=== PATIENT | female | born 1955 ===

== ENCOUNTER 2024-03-19 14:22 | Outpatient (REF) | payer MEDICARE, SELFPAY | END 2024-03-19 14:23 | disposition home or self-care (01) | LOC: LBN 14:22 | PROVIDERS: Visit Provider Internal Medicine Infectious Disease | DX: A31.0 Pulmonary mycobacterial infection; A31.9 Mycobacterial infection, unspecified | CPT/HCPCS: 87116; 87206 ==

== ENCOUNTER 2024-05-25 15:46 | Outpatient (REF) | payer MEDICARE, SELFPAY ==
[2024-05-25 15:54] LABS: Abs Immature Grans 0.01 10^3/uL (0.0-0.06); Absolute Basophil Count 0.08 10^3/uL (0.0-0.2); Absolute Eosinophil Count 0.43 10^3/uL (0.0-0.7); Absolute Lymphocyte Count 1.41 10^3/uL (1.2-3.4); Absolute Monocyte Count 0.41 10^3/uL (0.1-0.8); Absolute Neutrophil Count 2.46 10^3/uL (1.2-6.7); Basophils % 1.7 %; HCT 38.3 % (36.0-46.0); HGB 12.5 g/dL (11.2-15.7); Immature Grans % 0.2 %; Lymphocytes % 29.4 %; MCH 30.9 pg (27.0-33.0); MCHC 32.6 % (32.0-36.0); MCV 95 fL (80-95); MPV 12.2 fL (8.0-11.0); Monocytes % 8.5 %; Neutrophils % 51.2 %; Platelet Count 198 10^3/uL (130-400); RBC 4.05 10^6/uL (3.93-5.22); RDW 12.5 % (11.7-14.6); RDW-SD 43.3 fL
[2024-05-25 16:51] LABS: ALT 31 U/L (14-59); AST 25 U/L (15-37); Alkaline Phosphatase 91 U/L (46-116); Anion Gap 8.4 mmol/L (3-11); BUN 21 mg/dL (7-18); Bilirubin, Total 0.5 mg/dL (0.2-1.0); CO2 27.6 mmol/L (21.0-32.0); Calcium 9.3 mg/dL (8.5-10.1); Calculated LDL 61 mg/dL (<100); Chloride 106 mmol/L (98-107); Cholesterol 195 mg/dL (<200); Estimated GFR 60.98 (mL/min/1.73m2); Glucose 86 mg/dL (74-106); HDL Cholesterol 125 mg/dL (>or=50); Potassium 4.7 mmol/L (3.5-5.1); Sodium 142 mmol/L (136-145); Triglyceride 46 mg/dL (<150)
== END 2024-05-25 15:47 | disposition home or self-care (01) ==
LOC: NCHCN 15:46
PROVIDERS: PCP Family Medicine; Visit Provider Family Medicine
DX: E78.5 Hyperlipidemia, unspecified (principal); M31.31 Wegener's granulomatosis with renal involvement
CPT/HCPCS: 80053; 80061; 85025

== ENCOUNTER → 2024-08-12 13:00 | Outpatient (BNVA) | payer MEDICARE, SELFPAY | PROVIDERS: PCP Family Medicine; Referring Provider Family Medicine; Visit Provider Physician Assistant Surgical | DX: A31.0 Pulmonary mycobacterial infection (principal); M31.30 Wegener's granulomatosis without renal involvement; J45.909 Unspecified asthma, uncomplicated; J47.9 Bronchiectasis, uncomplicated; J44.9 Chronic obstructive pulmonary disease, unspecified | CPT/HCPCS: 99205 ==

== ENCOUNTER 2024-10-02 00:38 | Outpatient (CLI) | payer MEDICARE, SELFPAY ==
--- NOTE | 2024-10-02 | DI.MAMMO_ITS ---
Exam(s) MAMMO SCREENING EXAM: MAMMO SCREENING CLINICAL HISTORY: Screening, Z12.31. TECHNIQUE: Bilateral full field digital CC and MLO mammographic images were obtained with 3D tomosynthesis and utilizing computer aided detection (CAD). COMPARISON: Prior outside mammogram 2019 was reviewed. There are no interval mammograms. FINDINGS: There are no new significant left breast findings In the right breast there are 2 areas of asymmetric density-possible nodule seen on the CC view, both located approximately 5-6 cm in from the nipple on the CC view. One measures approximately 7 x 6 mm and the other asymmetric density- possible nodule measures slightly smaller. Spot compression view views and ultrasound recommended There are no malignant-appearing microcalcification groups in this region or elsewhere in either breast. There is no significant architectural distortion nor skin thickening-retraction. IMPRESSION: 1. Radiographic evidence of malignancy in left breast. 2. There are 2 areas of asymmetric density-possible nodules in the right breast as described above. Spot compression CC views and ultrasound recommended. BI-RADS Category 0 - Incomplete: Need additional imaging evaluation Breast Density - Category B - There are scattered areas of fibroglandular density. Breast density Category C or D implies that the patient has dense breast tissue. Dense breast tissue can make it harder to find cancer on a mammogram. Dense breast tissue is also associated with an increased risk of breast cancer. This information about the result of the mammogram report was provided to the patient to raise their awareness. Use this report when you speak with the patient about their risks for breast cancer, which includes their family history. At that time, you may recommend additional screening tests (Ultrasound or MRI) as these tests may add significant information. A negative radiographic report should not delay biopsy if a dominant or clinically suspicious mass is present. Up to ten percent of cancers are not identified on mammography. A negative report may reinforce clinical impression. Adenosis and dense breasts may obscure an underlying neoplasm. False positive reports average 6 to 10%. Patient will receive a letter notifying them of these results.
== END 2024-10-02 00:58 ==
LOC: DI 00:38
PROVIDERS: PCP Family Medicine; Visit Provider Family Medicine
DX: Z12.31 Encounter for screening mammogram for malignant neoplasm of breast (principal); R92.323 Mammographic fibroglandular density, bilateral breasts
CPT/HCPCS: 77063; 77067

== ENCOUNTER 2024-10-06 02:08 | Outpatient (CLI) | payer MEDICARE, SELFPAY ==
--- NOTE | 2024-10-06 | DI.US_ITS ---
Exam(s) MG MAMMO SCREEN CALL BACK UNI US BREAST RT COMPLETE EXAM: MG MAMMO SCREEN CALL BACK UNI CLINICAL HISTORY: F/U [facility] MAMMO, R92.8,2 AREAS RT BREAST ASYMMETRIC DENSITY,? NODULE. TECHNIQUE: Craniocaudal and mediolateral oblique spot compression digital Mammography views of the breast with Tomosynthesis and breast ultrasound. COMPARISON: MG MM 3D MAMMO SCREEN NEVAEH W CAD* from 02/20/2019 MG MG MAMMO SCREENING from 10/02/2024 US US BREAST RT COMPLETE from 10/06/2024 FINDINGS: Mammography/Tomosynthesis: Masses: None seen. No persistent abnormality. Findings are consistent with overlying fibroglandular tissue. Architectural Distortion: None seen. Microcalcifictions: No suspicious pleomorphic-type are seen. Skin Thickening/Nipple Retraction: None. Right breast US: Echotexture: Normal appearance of the glandular tissue. Shadowing: No suspicious foci. Cyst: None. Solid lesions: None seen. Ductal dilation: None. IMPRESSION: 1. No evidence of malignancy is noted. 2. Unless there is more urgent need, follow-up screening mammography is recommended, as per [place] [employer] guidelines. 3. The findings were discussed with the patient on the date of the examination. BI-RADS Category 1 - Negative Breast Density - Category B - There are scattered areas of fibroglandular density. Breast density Category C or D implies that the patient has dense breast tissue. Dense breast tissue can make it harder to find cancer on a mammogram. Dense breast tissue is also associated with an increased risk of breast cancer. This information about the result of the mammogram report was provided to the patient to raise their awareness. Use this report when you speak with the patient about their risks for breast cancer, which includes their family history. At that time, you may recommend additional screening tests (Ultrasound or MRI) as these tests may add significant information. A negative radiographic report should not delay biopsy if a dominant or clinically suspicious mass is present. Up to ten percent of cancers are not identified on mammography. A negative report may reinforce clinical impression. Adenosis and dense breasts may obscure an underlying neoplasm. False positive reports average 6 to 10%. Patient will receive a letter notifying them of these results.
== END 2024-10-06 02:28 ==
LOC: DI 02:08
PROVIDERS: PCP Family Medicine; Visit Provider Family Medicine
DX: Z12.31 Encounter for screening mammogram for malignant neoplasm of breast (principal); R92.8 Other abnormal and inconclusive findings on diagnostic imaging of breast
CPT/HCPCS: 76642; 77063; 77067

== ENCOUNTER 2024-10-20 16:32 | Outpatient (REF) | payer MEDICARE, SELFPAY ==
[2024-10-20 15:56] LABS: Anion Gap 5.8 mmol/L (3-11); BUN 26 mg/dL (7-18); CO2 28.2 mmol/L (21.0-32.0); Calcium 9.0 mg/dL (8.5-10.1); Chloride 106 mmol/L (98-107); Estimated GFR 60.98 (mL/min/1.73m2); Glucose 86 mg/dL (74-106); Potassium 4.5 mmol/L (3.5-5.1); Sodium 140 mmol/L (136-145)
== END 2024-10-20 16:33 | disposition home or self-care (01) ==
LOC: NCHCN 16:32
PROVIDERS: PCP Family Medicine; Visit Provider Family Medicine
DX: N08 Glomerular disorders in diseases classified elsewhere (principal)
CPT/HCPCS: 80048

== ENCOUNTER → 2024-11-09 11:06 | Outpatient (BNVA) | payer MEDICARE, SELFPAY | PROVIDERS: PCP Family Medicine; Referring Provider Family Medicine; Visit Provider Internal Medicine Pulmonary Disease | DX: J45.40 Moderate persistent asthma, uncomplicated (principal); J47.9 Bronchiectasis, uncomplicated; M31.30 Wegener's granulomatosis without renal involvement; A31.0 Pulmonary mycobacterial infection | CPT/HCPCS: 99214 ==

== ENCOUNTER 2025-01-28 11:12 | Outpatient (CLI) | payer MEDICARE, SELFPAY ==
--- NOTE | 2025-01-28 11:45 | RT.EKG_ITS ---
APPROVED REPORT Exam: Resting ECG Reason for Exam: CA TREATMENT Patient Location: O HR:58 bpm ECG Measurements Heart Rate 58 AXIS [place] 174 P 79 QRSd 71 QRS 72 QT 431 T 67 QTc 424 Conclusion Sinus rhythm...normal P axis, V-rate 50- 99 Probable left atrial enlargement...P >50mS, <-0.10mV V1 Otherwise normal ECG
== END 2025-01-28 11:13 | disposition home or self-care (01) ==
PROVIDERS: PCP Family Medicine; Visit Provider Internal Medicine Infectious Disease
DX: A31.0 Pulmonary mycobacterial infection (principal)
CPT/HCPCS: 36415; 80053; 85025; 93005; 93010

== ENCOUNTER 2025-01-28 13:52 | Outpatient (CLI) | payer MEDICARE, SELFPAY ==
[2025-01-28 12:27] LABS: Abs Immature Grans 0.01 10^3/uL (0.0-0.06); HCT 36.8 % (36.0-46.0); HGB 12.2 g/dL (11.2-15.7); Immature Grans % 0.2 %; MCH 31.3 pg (27.0-33.0); MCHC 33.2 % (32.0-36.0); MCV 94 fL (80-95); MPV 11.8 fL (8.0-11.0); Platelet Count 174 10^3/uL (130-400); RBC 3.90 10^6/uL (3.93-5.22); RDW 13.7 % (11.7-14.6); RDW-SD 47.7 fL; WBC 5.20 10^3/uL (4.4-10.8)
[2025-01-28 12:44] LABS: ALT 13 U/L (10-49); AST 22 U/L (<34); Albumin 4.5 g/dL (3.4-5.0); Alkaline Phosphatase 73 U/L (46-116); Anion Gap 7.4 mmol/L (3-11); BUN 30 mg/dL (9-23); Bilirubin, Total 0.50 mg/dL (0.2-1.2); CO2 26.6 mmol/L (20.0-31.0); Calcium 9.5 mg/dL (8.3-10.6); Chloride 106 mmol/L (98-107); Glucose 86 mg/dL (74-106); Potassium 4.7 mmol/L (3.5-5.1); Sodium 140 mmol/L (136-145); Total Protein 7.2 g/dL (5.7-8.2)
== END 2025-01-28 13:53 | disposition home or self-care (01) ==
LOC: LBO 13:53
PROVIDERS: PCP Family Medicine; Visit Provider Internal Medicine Infectious Disease
DX: A31.0 Pulmonary mycobacterial infection (principal)
CPT/HCPCS: 36415; 80053; 85025

== ENCOUNTER 2025-02-25 11:08 | Outpatient (CLI) | payer MEDICARE, SELFPAY ==
--- NOTE | 2025-02-25 11:11 | RT.EKG_ITS ---
APPROVED REPORT Exam: Resting ECG Reason for Exam: Lung infection Patient Location: O HR:70 bpm ECG Measurements Heart Rate 70 AXIS [place] 182 P 85 QRSd 84 QRS 75 QT 418 T 70 QTc 452 Conclusion Sinus rhythm...normal P axis, V-rate 50- 99 Right atrial abnormality
== END 2025-02-25 11:09 | disposition home or self-care (01) ==
PROVIDERS: PCP Family Medicine; Visit Provider Internal Medicine Infectious Disease
DX: A31.0 Pulmonary mycobacterial infection (principal)
CPT/HCPCS: 93005; 93010

== ENCOUNTER 2025-02-25 11:52 | Outpatient (CLI) | payer MEDICARE, SELFPAY ==
[2025-02-25 12:43] LABS: Abs Immature Grans 0.02 10^3/uL (0.0-0.06); HCT 35.4 % (36.0-46.0); HGB 11.5 g/dL (11.2-15.7); Immature Grans % 0.4 %; MCH 31.2 pg (27.0-33.0); MCHC 32.5 % (32.0-36.0); MCV 96 fL (80-95); MPV 11.9 fL (8.0-11.0); Platelet Count 163 10^3/uL (130-400); RBC 3.69 10^6/uL (3.93-5.22); RDW 13.4 % (11.7-14.6); RDW-SD 47.7 fL; WBC 5.59 10^3/uL (4.4-10.8)
[2025-02-25 13:13] LABS: ALT 15 U/L (10-49); AST 21 U/L (<34); Albumin 4.1 g/dL (3.2-5.0); Alkaline Phosphatase 77 U/L (46-116); Anion Gap 8.1 mmol/L (3-11); BUN 26 mg/dL (9-23); Bilirubin, Total 0.4 mg/dL (0.2-1.2); CO2 25.9 mmol/L (20.0-31.0); Calcium 9.4 mg/dL (8.3-10.6); Chloride 106 mmol/L (98-107); Glucose 82 mg/dL (74-106); Potassium 5.0 mmol/L (3.5-5.1); Sodium 140 mmol/L (136-145); Total Protein 6.6 g/dL (5.7-8.2)
== END 2025-02-25 11:53 | disposition home or self-care (01) ==
LOC: LBO 11:53
PROVIDERS: PCP Family Medicine; Visit Provider Internal Medicine Infectious Disease
DX: A31.0 Pulmonary mycobacterial infection (principal)
CPT/HCPCS: 36415; 80053; 85025; 93005